=== PATIENT | female | born 1940 | race Caucasian/White ===

== ENCOUNTER 2016-05-16 10:14 | Observation (INO) | payer OTHER ==
[~2016-05-16] VITALS: Ht 162.6 cm; Wt 65.7 kg
[~2016-05-16 10:14] MED LIST: ALEVE220 M2 PO; CALCIUM 500 MG1 EACH PO; CHILD ASPIRIN81 M1 PO; CHONDROITIN SU250 MG PO; CIPRO500 MG PO; COENZYME Q10100 M2 PO; COQ-10100 MG PO; FIBER500 MG PO; FLAXSEED OIL1000 M4 PO; FLONASE16 G1 BOTH NARES; MULTIPLE VITAM1 EAC4 PO; MULTIVITAMIN1 EAC2 PO; PREMARIN0.3 MG PO; PROBIOTIC1 EAC1 PO; SINGULAIR10 MG PO; ST. JOSEPH ASPI81 MG PO; SYNTHROID125 MCG PO; VITAMIN B COMP1 EACH PO; VITAMIN D1000 UNIT PO; VITAMIN D31000 UNI2 PO; XANAX0.5 MG PO
[2016-05-16 11:58] LABS: HEMATOCRIT 40.6 % (36.0-46.0); MCH 29.2 PG (29.0-34.0); MCHC 33.5 G/DL (30.0-36.0); MCV 87.3 FL (83-99); MEAN PLAT.VOLUME 10.4 uM^3 (9.5-12.4); PLATELET COUNT 291 K/uL (156-360); RBC DIS.WIDTH-CV 12.7 % (11.8-14.6); RBC DIS.WIDTH-SD 39.8 % (39-53); RED BLOOD COUNT 4.65 M/uL (3.80-5.20); WHITE BLOOD COUNT 5.3 K/uL (4.1-10.2)
[2016-05-16 12:09] LABS: CHLORIDE 108 mEq/L (99-109); SODIUM 142 mEq/L (136-147)
[2016-05-16 12:10] LABS: GLUCOSE 93 mg/dL (70-99)
[2016-05-16 12:12] LABS: ANION GAP 6 MEQ/L (2-14)
[2016-05-16 12:14] LABS: GFR ESTIMATE (CALCULATED) > 59 mL/min/
[2016-05-16 12:15] LABS: UREA NITROGEN (BUN) 16 mg/dL (9-23)
[2016-05-16 13:41] LABS: TROP-I INTERPRETATION NEGATIVE; TROPONIN-I < 0.01 ng/mL (0.0-0.30)
[2016-05-16 13:53] LABS: ADD MIUA? YES; BILIRUBIN NEGATIVE; BLOOD NEGATIVE; COLOR YELLOW ((YELLOW)); GLUCOSE (STRIP) NEGATIVE; KETONES NEGATIVE; LEUKOCYTES SMALL; NITRITE NEGATIVE; PROTEIN (STRIP) NEGATIVE; SPECIFIC GRAVITY 1.021 (1.000-1.030); UROBILINOGEN 0.2 MG/DL (0.2-1.0)
[2016-05-16] MEDS ORDERED: PEPCID20 MG PO (13:55)
[2016-05-16] MEDS ORDERED: OMEPRAZOLE40 M1 PO (13:56)
[2016-05-16 14:45] LABS: EPITHELIAL CELLS RARE; MUCUS NONE SEEN; RED BLOOD CELLS NONE SEEN /HPF (0-5)
[2016-05-16 14:46] LABS: BACTERIA RARE; CASTS NONE SEEN /LPF; CRYSTALS NONE SEEN; UCUL ADDED? NO
[2016-05-16] MEDS ORDERED: GLUCOSAMINE-CH1 EA14 PO (16:54)
[2016-05-16] MEDS ORDERED: RESTASIS 01 DROP/0.4 BOTH EYES (16:54)
[2016-05-16] MEDS ORDERED: LEVO-T50 MCG PO (16:55)
[2016-05-16] MEDS ORDERED: CHLORDIAZEPOXI1 EACH PO (16:57)
[2016-05-16 18:48] LABS: Estimated Average Glucose 128 mg/dL (70-123); HEMOGLOBIN A1c (GLYCOHEMOGLOB) 6.1 % HGB (Below 5.7)
[2016-05-16 19:33] VITALS: BP 121/77
[2016-05-17] VITALS: BP 140/71
[2016-05-17 04:17] VITALS: BP 115/56
[2016-05-17 06:40] LABS: HDL CHOLESTEROL 40 MG/DL (Desirable>=50); LDL CHOLESTEROL 149 mg/dL (Desirable<100); NON-HDL CHOLESTEROL 195 mg/dL (Desirable<160); TOTAL CHOLESTEROL 235 mg/dL (Desirable<200); TRIGLYCERIDES 231 MG/DL (Normal: <150)
[2016-05-17 08:15] VITALS: BP 121/57
[2016-05-17] MEDS ORDERED: BACTRIM,SEPT1 TABLET PO (12:15)
[2016-05-17] MEDS ORDERED: CRESTOR5 MG PO (12:15)
== END 2016-05-17 13:28 | disposition home or self-care (01) ==
LOC: EME 10:14 → EDOF 16:01 → 5WEST 16:01 → EDOF 16:01 → 5WEST 19:22
PROVIDERS: Hospitalist; Physician Assistant
DX: G45.9 Transient cerebral ischemic attack, unspecified (principal); N39.0 Urinary tract infection, site not specified; E03.9 Hypothyroidism, unspecified; R26.2 Difficulty in walking, not elsewhere classified; F41.9 Anxiety disorder, unspecified; F32.9 Major depressive disorder, single episode, unspecified; Z82.49 Family history of ischemic heart disease and other diseases of the circulatory system; Z82.3 Family history of stroke; Z79.82 Long term (current) use of aspirin; Z79.890 Hormone replacement therapy; Z91.040 Latex allergy status
CPT/HCPCS: 70450; 70551; 71020; 80048; 80061; 81003; 83036; 84443; 84484; 85027; 93005; 93880; 99281; 99285; G0378; J7030

== ENCOUNTER 2016-09-24 08:25 | Emergency (ER) | payer OTHER ==
[~2016-09-24] VITALS: Ht 162.6 cm; Wt 63.2 kg
[~2016-09-24 08:25] MED LIST changes: +BACTRIM,SEPT1 TABLET PO; +CHLORDIAZEPOXI1 EACH PO; +CRESTOR5 MG PO; +GLUCOSAMINE-CH1 EA14 PO; +LEVO-T50 MCG PO; +OMEPRAZOLE40 M1 PO; +PEPCID20 MG PO; +RESTASIS 01 DROP/0.4 BOTH EYES
[2016-09-24 09:24] LABS: MCH 28.1 PG (29.0-34.0); MCHC 31.9 G/DL (30.0-36.0); MCV 88.3 FL (83-99); MEAN PLAT.VOLUME 10.6 uM^3 (9.5-12.4); PLATELET COUNT 352 K/uL (156-360); RBC DIS.WIDTH-SD 42.3 % (39-53); RED BLOOD COUNT 4.87 M/uL (3.80-5.20); WHITE BLOOD COUNT 12.5 K/uL (4.1-10.2)
[2016-09-24] MEDS ORDERED: ASCORBIC ACID500 M3 PO (09:43)
[2016-09-24] MEDS ORDERED: FISH OIL 1,001000 M2 PO (09:43)
[2016-09-24] MEDS ORDERED: SINGULAIR10 MG PO (09:44)
[2016-09-24] MEDS ORDERED: AMOX TR-K CLV1 EAC4 PO (09:44)
[2016-09-24] MEDS ORDERED: VENTOLIN HFA18 GM IH (09:45)
[2016-09-24] MEDS ORDERED: CODEINE-GUAIFE120 ML PO (09:45)
[2016-09-24] MEDS ORDERED: PREDNISONE20 MG PO (09:45)
[2016-09-24 09:46] LABS: CHLORIDE 102 mEq/L (99-109); POTASSIUM 3.5 mEq/L (3.7-5.4); SODIUM 143 mEq/L (136-147)
[2016-09-24 09:47] LABS: GLUCOSE 110 mg/dL (70-99)
[2016-09-24 09:49] LABS: ANION GAP 12 MEQ/L (2-14)
[2016-09-24 09:52] LABS: UREA NITROGEN (BUN) 15 mg/dL (9-23)
[2016-09-24 09:56] LABS: GFR ESTIMATE (CALCULATED) > 59 mL/min/
[2016-09-24] MEDS ORDERED: PREDNISONE50 MG PO (11:05)
[2016-09-24] MEDS ORDERED: PROVENTIL HFA6.7 GM IH (11:05)
[2016-09-24] MEDS ORDERED: TESSALON200 MG PO (11:05)
[2016-09-24 11:35] VITALS: BP 128/60
== END 2016-09-24 11:36 | disposition home or self-care (01) ==
LOC: EME 08:25
DX: J20.9 Acute bronchitis, unspecified (principal)
CPT/HCPCS: 71020; 80048; 85027; 99281; 99284

== ENCOUNTER 2017-03-29 08:38 | Emergency (ER) | payer OTHER ==
[~2017-03-29] VITALS: Ht 162.6 cm; Wt 64.0 kg
[~2017-03-29 08:38] MED LIST changes: +AMOX TR-K CLV1 EAC4 PO; +ASCORBIC ACID500 M3 PO; +CODEINE-GUAIFE120 ML PO; +FISH OIL 1,001000 M2 PO; +PREDNISONE20 MG PO; +PREDNISONE50 MG PO; +PROVENTIL HFA6.7 GM IH; +TESSALON200 MG PO; +VENTOLIN HFA18 GM IH
[2017-03-29 09:23] LABS: EOSINOPHIL (%) 2.1 % (0-5); EOSINOPHIL COUNT 0.1 K/uL (0-0.3); HEMATOCRIT 38.8 % (36.0-46.0); IMMATURE GRANULOCYTE (%) 0.2 % (0.0-0.7); LYMPHOCYTE COUNT 1.9 K/uL (1.0-2.8); MCH 28.7 PG (29.0-34.0); MCHC 32.7 G/DL (30.0-36.0); MCV 87.8 FL (83-99); MONOCYTE (%) 7.4 % (3-12); MONOCYTE COUNT 0.3 K/uL (0-0.8); NEUTROPHIL (%) 46.9 % (45-76); PLATELET COUNT 261 K/uL (156-360); RBC DIS.WIDTH-CV 12.7 % (11.8-14.6); RED BLOOD COUNT 4.42 M/uL (3.80-5.20); WHITE BLOOD COUNT 4.3 K/uL (4.1-10.2)
[2017-03-29 09:34] LABS: D-DIMER ELISA < 150.00 ng/mLDDU (<230)
[2017-03-29 09:35] LABS: CHLORIDE 108 mEq/L (99-109); POTASSIUM 3.8 mEq/L (3.7-5.4); SODIUM 141 mEq/L (136-147)
[2017-03-29 09:36] LABS: GLUCOSE 94 mg/dL (70-99)
[2017-03-29 09:38] LABS: ANION GAP 7 MEQ/L (2-14)
[2017-03-29 09:40] LABS: GFR ESTIMATE (CALCULATED) > 59 mL/min/
[2017-03-29 09:41] LABS: UREA NITROGEN (BUN) 16 mg/dL (9-23)
[2017-03-29 09:45] LABS: TROP-I INTERPRETATION NEGATIVE; TROPONIN-I < 0.01 ng/mL (0.0-0.30)
[2017-03-29 13:18] VITALS: BP 115/78
== END 2017-03-29 13:35 | disposition home or self-care (01) ==
LOC: EME 08:38
PROVIDERS: Emergency Medicine
DX: J06.9 Acute upper respiratory infection, unspecified (principal); J40 Bronchitis, not specified as acute or chronic; Z79.82 Long term (current) use of aspirin; Z79.52 Long term (current) use of systemic steroids
CPT/HCPCS: 71010; 71275; 80048; 83880; 84484; 85025; 85379; 93005; 99281; 99285

== ENCOUNTER 2017-08-04 16:58 | Emergency (ER) | payer OTHER ==
[~2017-08-04] VITALS: Ht 162.6 cm; Wt 64.7 kg
[2017-08-04 17:30] LABS: BASOPHIL (%) 0.3 % (0-1); EOSINOPHIL (%) 0.8 % (0-5); EOSINOPHIL COUNT 0.1 K/uL (0-0.3); HEMATOCRIT 39.3 % (36.0-46.0); HEMOGLOBIN 13.2 G/DL (11.9-15.5); IMMATURE GRANULOCYTE (%) 0.3 % (0.0-0.7); LYMPHOCYTE (%) 15.3 % (15-42); LYMPHOCYTE COUNT 0.9 K/uL (1.0-2.8); MCH 29.1 PG (29.0-34.0); MCHC 33.6 G/DL (30.0-36.0); MCV 86.8 FL (83-99); MONOCYTE (%) 7.9 % (3-12); MONOCYTE COUNT 0.5 K/uL (0-0.8); NEUTROPHIL (%) 75.4 % (45-76); NEUTROPHIL COUNT 4.5 K/uL (1.8-6.4); PLATELET COUNT 244 K/uL (156-360); RBC DIS.WIDTH-CV 12.7 % (11.8-14.6); RBC DIS.WIDTH-SD 40.4 % (39-53); RED BLOOD COUNT 4.53 M/uL (3.80-5.20)
[2017-08-04 17:34] LABS: CHLORIDE 108 mEq/L (99-109); POTASSIUM 3.9 mEq/L (3.7-5.4); SODIUM 140 mEq/L (136-147)
[2017-08-04 17:35] LABS: GLUCOSE 99 mg/dL (70-99)
[2017-08-04 17:39] LABS: CREATININE 0.8 mg/dL (0.6-1.3); GFR ESTIMATE (CALCULATED) > 59 mL/min/
[2017-08-04 17:40] LABS: UREA NITROGEN (BUN) 13 mg/dL (9-23)
[2017-08-04 21:27] LABS: APPEARANCE SL.HAZY ((CLEAR)); BILIRUBIN SMALL; BLOOD NEGATIVE; COLOR YELLOW ((YELLOW)); GLUCOSE (STRIP) NEGATIVE; KETONES NEGATIVE; LEUKOCYTES MODERATE; NITRITE NEGATIVE; PROTEIN (STRIP) NEGATIVE; SPECIFIC GRAVITY 1.021 (1.000-1.030); UROBILINOGEN 0.2 MG/DL (0.2-1.0)
[2017-08-04 21:31] LABS: BACTERIA RARE /HPF; EPITHELIAL CELLS RARE /HPF; MUCUS TRACE /LPF; RED BLOOD CELLS 0-5 /HPF (0-5); UCUL ADDED? YES; WHITE BLOOD CELLS 20-30 /HPF (0-5)
[2017-08-04] MEDS ORDERED: ZYRTEC10 M2 PO (21:38)
[2017-08-04] MEDS ORDERED: PHENERGAN-CODE120 ML PO (21:38)
[2017-08-04] MEDS ORDERED: FLONASE16 G1 BOTH NARES (21:38)
[2017-08-04] MEDS ORDERED: KEFLEX500 MG PO (21:47)
[2017-08-04 22:27] VITALS: BP 133/79
== END 2017-08-04 22:28 | disposition home or self-care (01) ==
LOC: EME 16:58
DX: J06.9 Acute upper respiratory infection, unspecified (principal); N39.0 Urinary tract infection, site not specified; J30.9 Allergic rhinitis, unspecified; F32.9 Major depressive disorder, single episode, unspecified; K21.9 Gastro-esophageal reflux disease without esophagitis; F41.9 Anxiety disorder, unspecified
CPT/HCPCS: 71046; 80048; 81003; 83605; 85025; 87086; 87502; 99281; 99284